=== PATIENT | female | born 1985 | race Caucasian/White ===

== ENCOUNTER 2018-07-28 06:27 | Inpatient (IN) | payer BC ==
--- NOTE | 2018-07-28 08:28 | PCM.LDHP ---
<Sayda Lebron - Last Filed: 07/28/18 08:20> L&D History of Present Illness - General Date of Service: 07/28/18 Admit Problem/Dx: Admission Diagnosis/Problem Admission Diagnosis/Problem Source of Information: Patient History Limitations: Reports: No Limitations - History of Present Illness Introduction:: 32 y/o who presents for induction of labor. Hx of gestational diabetes with 2nd , but passed 3-hour glucose in this . Feeling well today. [place] contractions. No vaginal bleeding or loss of fluid. labs: ABO/Rh B+ Yamileth Neg Rubella Immune GBS + - Related Data Allergies/Adverse Reactions: Allergies Allergy/AdvReac Type Severity Reaction Status Date / Time No Known Allergies Allergy Verified 07/28/18 06:54 Home Medications: Home Meds Pnv No.95/Ferrous Fum/Folic AC [ Caplet] 1 each PO DAILY 07/28/18 [ History] Past Medical History : 3 Para: 2 LMP (Approximate): Other OB/BYN History: 1 (07/26/12): of baby boy. 2 (): of baby girl augmented with Pitocin Endocrine/Metabolic History: Reports: Diabetes, Gestational (Gestational diabetes with second .) - Past Surgical History Head Surgeries/Procedures: Reports: None Social & Family History - Family History Cardiac: Reports: None Other OBGYN Family History: No family hx of defects, anesthesia problems, cystic fibrosis, or developmental delay. Endocrine/Metabolic: Reports: Diabetes, type II - Tobacco Use Smoking Status *Q: Former Smoker Tobacco Use Within Last Twelve Months: No - Tobacco Core Measures Tobacco Use/Smoking Within Last 30 Days: No - Alcohol Use Alcohol Use History: Yes Alcohol Use Frequency: Not Used in Over 6 Months Alcohol Use Comment: No alcohol use during . - Recreational Drug Use Recreational Drug Use: No - Sexual History Sexual History: Reports: Single Partner H&P Review of Systems - Review of Systems: Review Of Systems: See Below General: Denies: Fever, Chills HEENT: Denies: Eye Pain, Headaches, Visual Changes Pulmonary: Denies: Shortness of Breath, Wheezing, Cough Cardiovascular: Denies: Chest Pain, Blood Pressure Problem Gastrointestinal: Denies: Abdominal Pain, Diarrhea, Nausea Genitourinary: Denies: Dysuria, Frequency, Burning, Pain Skin: Denies: Cyanosis Psychiatric: Denies: Confusion, Mood Lability Hematologic/Lymphatic: Denies: Easy Bleeding, Easy Bruising L&D Exam - Exam Exam: See Below - Vital Signs Vital Signs: Last Vital Signs Temp Pulse 83 07/28/18 06:40 Resp 16 07/28/18 06:40 BP 106/60 07/28/18 06:40 Pulse Ox Weight: 98.43 kg - OB Specific Contraction Duration (sec): 40-80 Contraction Frequency (min): irregular Contraction Intensity: Mild to Moderate Movement: Active Heart Tones: Present Heart Tones per Min: 150 Heart Rate (FHR) Variability: Moderate (6-25 bmp) Presentation: Vertex - Jean Score Jean Score Cervix Position: Midposition Jean Score Consistency: Medium Jean Score Effacement: 31-50% Jean Score Dilation: 1-2 cm Jean Score Infant's Station: -3 Jean Score Total: 4 - Exam General: Alert, Oriented, Cooperative HEENT: Conjunctiva Clear, Mucosa Moist & [place], Normal Nasal Septum, Pupils Equal , Pupils Reactive Neck: Supple, Trachea Midline Lungs: Clear to Auscultation, Normal Respiratory Effort Cardiovascular: Regular Rate, Regular Rhythm, Systolic Murmur (I/IV systolic murmur consistent with a flow murmur). No: Rubs GI/Abdominal Exam: Normal Bowel Sounds, Soft, Non-Tender, No Distention Extremities: Normal Inspection, Non-Tender, No Pedal Edema Skin: Warm, Dry Psychiatric: Alert, Normal Affect, Normal Mood - Patient Data Lab Results Last 24 hrs: Laboratory Results - last 24 hr 07/28/18 07/28/18 Range/Units 06:46 06:46 WBC 10.4 H (5.0-10.0) 10^3/uL RBC 3.91 L (4.2-5.4) 10^6/uL Hgb 11.6 L (12.0-16.0) g/dL Hct 34.6 L (37.0-47.0) % MCV 88.5 (80-100) fL MCH 29.7 (27.0-34.0) pg MCHC 33.5 (33.0-35.0) g/dL Plt Count 230 (150-450) 10^3/uL Glucose 172 H (74-105) mg/dL Result Diagrams: 07/28/18 06:46 - Problem List (1) Encounter for induction of labor SNOMED Code(s): 002177096 ICD Code: Z34.90 - ENCNTR FOR SUPRVSN OF NORMAL , UNSP, UNSP TRIMESTER Status: Acute Current Visit: Yes (2) Gestational diabetes SNOMED Code(s): 07386369 ICD Code: O24.419 - GESTATIONAL DIABETES MELLITUS IN , UNSP CONTROL Status: Acute Current Visit: Yes (3) Group B streptococcal infection during SNOMED Code(s): 054089129 ICD Code: O98.819 - OTH MATERNAL INFEC/PARASTC DISEASES COMP PREG, UNSP TRI; B95.1 - STREPTOCOCCUS, GROUP B, CAUSING DISEASES CLASSD ELSWHR Status: Acute Current Visit: Yes Problem List Initiated/Reviewed/Updated: Yes Orders Last 24hrs: Active Orders 24 hr Category Date Time Status Regular Diet [DIET] Diet 07/28/18 Breakfast Active Assessment/Plan Comment:: Assessment: 1. at 39w0d gestation 2. Gestational diabetes, diet controlled 3. Glucose intolerance 4. B+/Rubella Immune/GBS+ Plan: 1. Routine management of labor 2. Induction with pitocin 3. Glucose checks q4H 4. Pencillin started at 0840 for GBS+ status <Shelby Peacock D - Last Filed: 07/28/18 12:25> L&D History of Present Illness - General Admit Problem/Dx: Patient Status Order with Admit Dx/Problem 07/28/18 08:35 Patient Status [ADT] Routine Admission Diagnosis/Problem Admission Diagnosis/Problem Gestational diabetes mellitus L&D Exam - Vital Signs Vital Signs: Last Vital Signs Temp Pulse 83 07/28/18 06:40 Resp 16 07/28/18 06:40 BP 106/60 07/28/18 06:40 Pulse Ox - Patient Data Lab Results Last 24 hrs: Laboratory Results - last 24 hr 07/28/18 07/28/18 Range/Units 06:46 06:46 WBC 10.4 H (5.0-10.0) 10^3/uL RBC 3.91 L (4.2-5.4) 10^6/uL Hgb 11.6 L (12.0-16.0) g/dL Hct 34.6 L (37.0-47.0) % MCV 88.5 (80-100) fL MCH 29.7 (27.0-34.0) pg MCHC 33.5 (33.0-35.0) g/dL Plt Count 230 (150-450) 10^3/uL Glucose 172 H (74-105) mg/dL Result Diagrams: 07/28/18 06:46 Orders Last 24hrs: Active Orders 24 hr Category Date Time Status Patient Status [ADT] Routine ADT 07/28/18 08:35 Active Communication Order [RC] ASDIRECTED Care 07/28/18 08:35 Active Communication Order [RC] ASDIRECTED Care 07/28/18 08:35 Active Communication Order [RC] ASDIRECTED Care 07/28/18 08:35 Active Communication Order [RC] ASDIRECTED Care 07/28/18 08:35 Active Communication Order [RC] ASDIRECTED Care 07/28/18 08:35 Active Heart Tones [RC] PER UNIT ROUTINE Care 07/28/18 08:35 Active Monitoring [RC] PER UNIT ROUTINE Care 07/28/18 08:35 Active Notify Provider Vital Signs OB [RC] ASDIRECTED Care 07/28/18 08:35 Active Notify Provider [RC] PRN Care 07/28/18 08:35 Active Notify Provider [RC] PRN Care 07/28/18 08:35 Active Notify Provider [RC] PRN Care 07/28/18 08:35 Active Notify Provider [RC] STAT Care 07/28/18 08:35 Active Peripheral IV Care [RC] 08,20 Care 07/28/18 08:36 Active Pump Management, Intrathecal [RC] ASDIRECTED Care 07/28/18 08:36 Active Up ad Ca [RC] ASDIRECTED Care 07/28/18 08:35 Active Up ad Ca [RC] PER UNIT ROUTINE Care 07/28/18 08:35 Active Vaginal Exam [RC] PRN Care 07/28/18 08:35 Active Vital Signs [RC] PER UNIT ROUTINE Care 07/28/18 08:35 Active Nothing Per Oral Diet [DIET] Diet 07/28/18 Lunch Active Regular Diet [DIET] Diet 07/28/18 Breakfast Active Acetaminophen [Tylenol] Med 07/28/18 08:35 Active 650 mg PO Q4H PRN Carboprost Tromethamine [Hemabate DS] Med 07/28/18 08:35 Active 250 mcg IM ASDIRECTED PRN Lactated Ringers [Ringers, Lactated] 1,000 ml Med 07/28/18 08:45 Active IV ASDIRECTED Lactated Ringers [Ringers, Lactated] 500 ml Med 07/28/18 08:35 Active IV .BOLUS Lidocaine 1% [Xylocaine-MPF 1%] Med 07/28/18 08:35 Active 30 ml INJECT ASDIRECTED PRN Methylergonovine [Methergine] Med 07/28/18 08:35 Active 0.2 mg IM ASDIRECTED PRN Ondansetron [Zofran] Med 07/28/18 08:35 Active 4 mg IV Q4H PRN Oxytocin/Normal Saline [Pitocin in NS 30 UNIT/500 ML] Med 07/28/18 08:45 Active 30 unit in 500 ml IV TITRATE Oxytocin/Normal Saline [Pitocin in NS 30 UNIT/500 ML] Med 07/28/18 08:45 Active 30 unit in 500 ml IV TITRATE Penicillin G Potassium [Pfizerpen] 3 millunits Med 07/28/18 14:00 Active Sodium Chloride 0.9% [Normal Saline] 100 ml IV Q4HR Sodium Chloride 0.9% [Saline Flush] Med 07/28/18 08:35 Active 10 ml FLUSH ASDIRECTED PRN Tranexamic Acid [Cyklokapron] 1,000 mg Med 07/28/18 08:35 Active Sodium Chloride 0.9% [Normal Saline] 100 ml IV ONETIME miSOPROStol [Cytotec] Med 07/28/18 08:35 Active 800 mcg RECTAL ASDIRECTED PRN Peripheral IV Insertion Adult [OM.PC] Urgent Oth 07/28/18 08:35 Ordered Saline Lock Insert [OM.PC] Routine Oth 07/28/18 08:35 Ordered Resuscitation Status Routine Resus Stat 07/28/18 08:35 Ordered Medication Orders Acetaminophen (Tylenol) 650 mg PO Q4H PRN PRN Reason: Pain (Mild 1-3) and fever Carboprost Tromethamine (Hemabate Ds) 250 mcg IM ASDIRECTED PRN PRN Reason: HEMORRHAGE Lactated Ringer's (Ringers, Lactated) 500 mls @ 99 mls/hr IV .BOLUS ONE Stop: 07/28/18 13:38 Tranexamic Acid 1,000 mg/ (Sodium Chloride) 110 mls @ 660 mls/hr IV ONETIME PRN PRN Reason: Bleeding Lactated Ringer's (Ringers, Lactated) 1,000 mls @ 125 mls/hr IV ASDIRECTED SHEA Last Admin: 07/28/18 09:00 Dose: 125 mls/hr Oxytocin/Sodium Chloride (Pitocin In Ns 30 Unit/500 Ml) 30 unit in 500 mls @ 2 mls/hr IV TITRATE SHEA; Protocol Last Titration: 07/28/18 11:30 Dose: 5 mls/hr Titration: 07/28/18 11:00 Dose: 4 mls/hr Titration: 07/28/18 10:30 Dose: 3 mls/hr Titration: 07/28/18 09:30 Dose: 2 mls/hr Admin: 07/28/18 09:00 Dose: 2 munits/min, 1 mls/hr Oxytocin/Sodium Chloride (Pitocin In Ns 30 Unit/500 Ml) 30 unit in 500 mls @ 1 mls/hr IV TITRATE SHEA; Protocol Penicillin G Potassium 3 (millunits/ Sodium Chloride) 100 mls @ 200 mls/hr IV Q4HR SHEA Lidocaine HCl (Xylocaine-Mpf 1%) 30 ml INJECT ASDIRECTED PRN PRN Reason: Perineal Repair Methylergonovine Maleate (Methergine) 0.2 mg IM ASDIRECTED PRN PRN Reason: Hemorrhage Misoprostol (Cytotec) 800 mcg RECTAL ASDIRECTED PRN PRN Reason: Hemorrhage Ondansetron HCl (Zofran) 4 mg IV Q4H PRN PRN Reason: Nausea/Vomiting Sodium Chloride (Saline Flush) 10 ml FLUSH ASDIRECTED PRN PRN Reason: Keep Vein Open Assessment/Plan Comment:: Patient was personally seen and examined with the medical student. I reviewed the noted scribed on my behalf and necessary changes have been made to reflect my opinion on the history, exam, assessment, and plan. - Shelby Peacock MD
[2018-07-28] MEDS ORDERED: Ondansetron 4 MG/2 ML SDV IV PRN (08:35)
[2018-07-28] MEDS ORDERED: Carboprost Tromethamine 250 MCG/1 ML Amp IM PRN (08:35)
[2018-07-28] MEDS ORDERED: Lactated Ringers 500 ML IV ONE (08:35)
[2018-07-28] MEDS ORDERED: Tranexamic Acid 1,000 MG in Sodium Chloride 0.9% 100 ML IV PRN (08:35)
[2018-07-28] MEDS ORDERED: Penicillin G Potassium 5 MILLUNITS in Sodium Chloride 0.9% 100 ML IV ONE ×2 (08:35→10:30)
[2018-07-28] MEDS ORDERED: Sodium Chloride 0.9% 10 ML Syringe FLUSH PRN (08:35)
[2018-07-28] MEDS ORDERED: Lidocaine 1% 30 ML SDV INJECT PRN (08:35)
[2018-07-28] MEDS ORDERED: Methylergonovine 0.2 MG/1 ML Amp IM PRN (08:35)
[2018-07-28] MEDS ORDERED: Acetaminophen 325 MG Tab PO PRN ×2 (08:35)
[2018-07-28] MEDS ORDERED: Misoprostol 400 MCG (4 X 100 MCG TAB) RECTAL PRN (08:35)
[2018-07-28] MEDS ORDERED: Oxytocin/Normal Saline 30 UNIT/500 ML BAG IV SCH ×2 (08:45)
[2018-07-28] MEDS: Lactated Ringers 1,000 ML IV SCH ×2 (09:00→16:03)
[2018-07-28] MEDS ORDERED: Penicillin G Potassium 3 MILLUNITS in Sodium Chloride 0.9% 100 ML IV SCH (10:00)
[2018-07-28] MEDS: Penicillin G Potassium 3 MILLUNITS in Sodium Chloride 0.9% 100 ML IV SCH ×2 (14:46→18:40)
[2018-07-28] MEDS ORDERED: Zolpidem 5 MG Tab PO PRN (21:37)
[2018-07-28] MEDS ORDERED: Misoprostol 50 MCG (1/2 of 100 MCG) Tab VAG PRN (22:00)
[2018-07-28] MEDS ORDERED: hydrOXYzine HCl 25 MG Tab PO STA (22:03)
[2018-07-28] MEDS: Misoprostol 25 MCG (1/4 of 100 MCG) Tab VAG PRN (22:18)
[2018-07-29] MEDS: Misoprostol 25 MCG (1/4 of 100 MCG) Tab VAG PRN ×2 (02:25→06:21)
[2018-07-29] MEDS: Lactated Ringers 1,000 ML IV SCH ×4 (03:00→17:10)
[2018-07-29] MEDS ORDERED: Lactated Ringers 1,000 ML IV ONE (08:37)
--- NOTE | 2018-07-29 09:31 | PCM.PNLD ---
Labor Progress Note - VS & Meds Vital Signs: Last Vital Signs Temp 98.4 F 07/29/18 07:30 Pulse 73 07/29/18 07:30 Resp 16 07/29/18 07:30 BP 112/61 07/29/18 07:30 Pulse Ox - Uterine Contractions Uterine Monitoring Mode: External [place] Contraction Frequency (min): 1-2.5 Contraction Duration (sec): 60-90 Contraction Intensity: Mild Uterine Resting Tone: Soft - Monitoring Heart Rate (FHR) Baseline: 135 Heart Rate (FHR) Variability: Moderate (6-25 bmp) Accelerations: Present, 15x15 Decelerations: None Strip Review: Category I - Vaginal Exam Dilation (cm): 3 Effacement (Percent): 75 Station: -2 Cervical Position: Midposition Sterile Vaginal Exam Performed By: Shelby Peacock Vaginal Exam Comment: cervix more anterior; very soft
[2018-07-29] MEDS: Penicillin G Potassium 3 MILLUNITS in Sodium Chloride 0.9% 100 ML IV PRN ×2 (11:31→15:19)
[2018-07-29] MEDS ORDERED: fentaNYL 100 MCG/2 ML SDV ONE (15:26)
[2018-07-29] MEDS ORDERED: EPINEPHrine 1 MG/ML SDV ONE (15:27)
--- NOTE | 2018-07-29 16:15 | PCM.PRNOTE ---
- Free Text/Narrative Note: Requested to provide analgesia to full term patient in severe pain. Upon entering the room, patient is sitting on edge of bed complaining of severe abdominal/pelvic pain and discomfort. Procedure was discussed with patient including adverse outcomes and expectations. Pt consented to analgesia, SAB/ IT. Pt placed into a proper sitting position. Landmarks for SAB/IT were identified and marked. Hands were washed and appropriate PPE was applied. Back was prepped with betadine x3. A sterile, transparent, fenestrated drape was applied. Excess betadine was removed. Using 3 mL of a 1% lidocaine solution , a skin wheel was placed at the L2/L3 interspace. A 24 ga (4 inch) Pencan spinal needle was inserted until positive for CSF. Negative for heme or paresthesias. Injected fentanyl 30 mcg, sufentanil 25 mcg, and 7.5 mg of a 0.75 % bupivacaine solution with an epi wash. Pt was placed left lateral position for approximately 10 minutes. Pt began to have a decrease in FHT. HR was 88- 120, hovering in the 90s for several minutes. O2 applied and fluid bolus given. BP normal, 105-108 systolic. Nurse checked the patient and she was complete with head far down >+2. Md to room. Baby girl delivered without difficulties. Will continue to monitor. Procedure Date & Time: 07/29/18 [phone]
[2018-07-29] MEDS ORDERED: ePHEDrine 50 MG/ML SDV IVPUSH ONE (17:02)
[2018-07-29] MEDS: ePHEDrine 50 MG/ML SDV ONE ×2 (17:07→17:43)
[2018-07-29] MEDS: ePHEDrine 50 MG/ML SDV IVPUSH PRN ×5 (17:07→17:31)
--- NOTE | 2018-07-29 17:12 | PCM.DEL ---
<Sayad Lebron - Last Filed: 07/29/18 17:32> L & D Note - General Info Date of Service: 07/29/18 - Delivery Note Labor: Induced by Oxytocin Delivery Outcome: Livebirth Infant Delivery Method: Spontaneous Vaginal Delivery-Single Presentation: Vertex Nuchal Cord: Reduced Anesthesia Type: Intrathecal Laceration: None Placenta: Intact, Spontaneous Cord: 3 Vessels Resuscitation Needed: No : Suctioned, Bulb Syringe, Stimulated, Warmed Score 1 min: 6 Score 5 min: 9 Second Stage Interventions: Reports: Pushing Effectively Induction Criteria - Jean Score Jean Score Dilation: 1-2 cm Jean Score Effacement: 40-50% Jean Score 's Station: -3 Jean Score Consistency: Firm Jean Score Cervix Position: Posterior Jean Score Total: 2 Jean Score Presenting Part: Reports: Cephalic - Induction Gestational Age >/= 39 wks: Yes Estimated Pelvis: Reports: Adequate Reassuring Monitoring Strip: Yes - General Info Date of Service: 07/29/18 Admission Dx/Problem (Free Text): Induction of Labor Subjective Update: 30 39w0d TAMIKO presented at on 07/28 for elective induction of labor. Patient had irregular contractions occurring every 3-9 minutes and a cervical check of 1/50/-3. Pitocin was started and increased in the usual fashion. Patient made limited progress by the end of the day. The Pitocin was stopped and Cytotec was placed overnight. Pitocin was restarted the morning of 07/29/18 and increased in the usual fashion. At 1530, the patient requested intrathecal anesthesia and was found to be 5/80/0 with spontaneous rupture of membranes. Shortly after the intrathecal anesthesia placement, the patient had a desire to push and was found to be completely dilated. The patient pushed extremely well, the rotated and descended and normal spontaneous vaginal delivery occurred at 1558 hours in the YELENA position over intact perineum. Meconium- stained fluid was noted as the head came over the perineum. The shoulders delivered easily and nuchal cord loose x1 was noted and reduced with the delivery of the body. The cord was immediately clamped x2 and cut. The infant was taken to the warmer for evaluation. The placenta delivered spontaneously, was complete, and had a 3-vessel cord. EBL 200mL. Pitocin was run open after the delivery of the placenta. The vagina was inspected with note of a superficial vaginal abrasion on the inferior aspect of the perineum. The fundus was firm. Infant's Apgars were 6/9. Weight was 7 lbs 13 oz (3540g). Shortly after delivery, BP was noted to be 60's/40's. Patient was given epinephrine per order of WOOD COATER and a CBC was ordered to evaluate for blood loss. - Review of Systems General: Denies: Fever, Weakness HEENT: Denies: Headaches, Visual Changes Pulmonary: Denies: Shortness of Breath, Cough, Wheezing Cardiovascular: Denies: Chest Pain, Palpitations Neurological: Denies: Confusion, Dizziness, Headache - Patient Data Vitals - Most Recent: Last Vital Signs Temp 98.4 F 07/29/18 13:45 Pulse 72 07/29/18 14:00 Resp 14 07/29/18 14:00 BP 113/68 07/29/18 14:00 Pulse Ox Weight - Most Recent: 98.43 kg Lab Results Last 24 Hours: Laboratory Results - last 24 hr 07/28/18 07/28/18 Range/Units 17:26 20:03 POC Glucose 83 84 (70-105) mg/dl Med Orders - Current: Current Medications Acetaminophen (Tylenol) 650 mg PO Q4H PRN PRN Reason: Pain (Mild 1-3) and fever Carboprost Tromethamine (Hemabate Ds) 250 mcg IM ASDIRECTED PRN PRN Reason: HEMORRHAGE Tranexamic Acid 1,000 mg/ (Sodium Chloride) 110 mls @ 660 mls/hr IV ONETIME PRN PRN Reason: Bleeding Lactated Ringer's (Ringers, Lactated) 1,000 mls @ 125 mls/hr IV ASDIRECTED SHEA Last Admin: 07/29/18 09:00 Dose: 125 mls/hr Oxytocin/Sodium Chloride (Pitocin In Ns 30 Unit/500 Ml) 30 unit in 500 mls @ 2 mls/hr IV TITRATE SHEA; Protocol Last Titration: 07/28/18 20:13 Dose: 0 mls/hr Oxytocin/Sodium Chloride (Pitocin In Ns 30 Unit/500 Ml) 30 unit in 500 mls @ 1 mls/hr IV TITRATE SHEA; Protocol Last Titration: 07/29/18 14:40 Dose: 9 munits/min, 9 mls/hr Penicillin G Potassium 3 (millunits/ Sodium Chloride) 100 mls @ 200 mls/hr IV Q4H PRN PRN Reason: start when pt in active labor Last Admin: 07/29/18 15:19 Dose: 200 mls/hr Lidocaine HCl (Xylocaine-Mpf 1%) 30 ml INJECT ASDIRECTED PRN PRN Reason: Perineal Repair Methylergonovine Maleate (Methergine) 0.2 mg IM ASDIRECTED PRN PRN Reason: Hemorrhage Misoprostol (Cytotec) 800 mcg RECTAL ASDIRECTED PRN PRN Reason: Hemorrhage Misoprostol (Cytotec) 25 mcg VAG Q4H PRN PRN Reason: Other Last Admin: 07/29/18 06:21 Dose: 25 mcg Ondansetron HCl (Zofran) 4 mg IV Q4H PRN PRN Reason: Nausea/Vomiting Last Admin: 07/29/18 15:12 Dose: 4 mg Sodium Chloride (Saline Flush) 10 ml FLUSH ASDIRECTED PRN PRN Reason: Keep Vein Open Zolpidem Tartrate (Ambien) 5 mg PO BEDTIME PRN PRN Reason: Insomnia Discontinued Medications Epinephrine HCl (Adrenalin) Confirm Administered Dose 1 mg .ROUTE .STK-MED ONE Stop: 07/29/18 15:28 Last Admin: 07/29/18 16:46 Dose: Not Given Fentanyl (Sublimaze) Confirm Administered Dose 100 mcg .ROUTE .STK-MED ONE Stop: 07/29/18 15:27 Last Admin: 07/29/18 16:46 Dose: Not Given Hydroxyzine HCl (Atarax) 50 mg PO ONETIME STA Stop: 07/28/18 22:04 Last Admin: 07/28/18 22:18 Dose: 50 mg Lactated Ringer's (Ringers, Lactated) 500 mls @ 99 mls/hr IV .BOLUS ONE Stop: 07/28/18 13:38 Last Admin: 07/29/18 09:51 Dose: Not Given Penicillin G Potassium 5 (millunits/ Sodium Chloride) 100 mls @ 200 mls/hr IV ONETIME ONE Stop: 07/28/18 10:59 Last Admin: 07/28/18 10:42 Dose: 200 mls/hr Penicillin G Potassium 3 (millunits/ Sodium Chloride) 100 mls @ 200 mls/hr IV Q4HR SHEA Last Admin: 07/28/18 18:40 Dose: 200 mls/hr Lactated Ringer's (Ringers, Lactated) 1,000 mls @ 999 mls/hr IV .BOLUS ONE Stop: 07/29/18 09:37 Last Admin: 07/29/18 15:07 Dose: 999 mls/hr Misoprostol (Cytotec) 25 mcg VAG Q4H PRN PRN Reason: Other Sufentanil Citrate (Sufenta) Confirm Administered Dose 50 mcg .ROUTE .STK-MED ONE Stop: 07/29/18 15:28 Last Admin: 07/29/18 16:46 Dose: Not Given - Exam General: Alert, Oriented HEENT: EOMI, Mucous Membr. Moist/[place] Neck: Supple Lungs: Clear to Auscultation, Normal Respiratory Effort Cardiovascular: Regular Rate, Regular Rhythm GI/Abdominal Exam: Soft, Non-Tender Extremities: Normal Inspection, No Pedal Edema, Normal Capillary Refill Skin: Warm, Dry Psy/Mental Status: Alert, Normal Affect, Normal Mood - Problem List & Annotations (1) Encounter for induction of labor SNOMED Code(s): 211969313 Code(s): Z34.90 - ENCNTR FOR SUPRVSN OF NORMAL , UNSP, UNSP TRIMESTER Status: Acute Current Visit: Yes (2) Gestational diabetes SNOMED Code(s): 65439739 Code(s): O24.419 - GESTATIONAL DIABETES MELLITUS IN , UNSP CONTROL Status: Acute Current Visit: Yes (3) Group B streptococcal infection during SNOMED Code(s): 615064275 Code(s): O98.819 - OTH MATERNAL INFEC/PARASTC DISEASES COMP PREG, UNSP TRI; B95.1 - STREPTOCOCCUS, GROUP B, CAUSING DISEASES CLASSD ELSWHR Status: Acute Current Visit: Yes - Problem List Review Problem List Initiated/Reviewed/Updated: Yes - Plan Plan:: 1. Routine care. 2. Bottle feeding 3. Encourage ambulation once intrathecal wears off. 4. WOOD COATER managing low BP 5. Anticipate discharge tomorrow or Tuesday <Shelby Peacock - Last Filed: 07/29/18 17:46> - Patient Data Vitals - Most Recent: Last Vital Signs Temp 98.4 F 07/29/18 13:45 Pulse 72 07/29/18 14:00 Resp 14 07/29/18 14:00 BP 113/68 07/29/18 14:00 Pulse Ox Lab Results Last 24 Hours: Laboratory Results - last 24 hr 07/28/18 Range/Units 20:03 POC Glucose 84 (70-105) mg/dl - My Orders Last 24 Hours: My Active Orders 07/29/18 17:37 Notify Provider Vital Signs OB [RC] ASDIRECTED Up ad Ca [RC] ASDIRECTED Vital Signs [RC] PFP CBC W/O DIFF,HEMOGRAM [HEME] Routine Acetaminophen [Tylenol] 650 mg PO Q6H PRN Benzocaine/Menthol [Dermoplast Pain Relief [place]] See Dose Instructions TOP Q4H PRN Carboprost Tromethamine [Hemabate DS] 250 mcg IM ASDIRECTED PRN Docusate Sodium [Colace] 100 mg PO BID PRN Ibuprofen [Motrin] 800 mg PO Q8H PRN Oxytocin [Pitocin] 10 unit IM ONETIME PRN Simethicone 80 mg PO Q4H PRN Sodium Chloride 0.9% [Saline Flush] 10 ml FLUSH ASDIRECTED PRN Tranexamic Acid [Cyklokapron] 1,000 mg Sodium Chloride 0.9% [Normal Saline] 100 ml IV ONETIME Zolpidem [Ambien] 5 mg PO BEDTIME PRN miSOPROStol [Cytotec] 800 mcg RECTAL ONETIME PRN Assess Lochia [WOMSER] Per Unit Routine Assess Uterine Involution [WOMSER] Per Unit Routine Breast Pump [WOMSER] Per Unit Routine Ice Therapy [OM.PC] Per Unit Routine Perineal Care [OM.PC] Per Unit Routine Saline Lock Insert [OM.PC] Urgent Sitz Bath [OM.PC] Per Unit Routine 07/30/18 09:00 Vit with Ca/FA/Iron [ Plus Iron] 1 each PO DAILY - Plan Plan:: Patient was personally seen and examined with the medical student. Delivery was performed by myself with the assist of KARYN Bueno. I reviewed the noted scribed on my behalf and necessary changes have been made to reflect my opinion on the history, exam, assessment, and plan. - Shelby Peacock MD
[2018-07-29] MEDS ORDERED: Acetaminophen 325 MG Tab PO PRN (17:37)
[2018-07-29] MEDS ORDERED: Misoprostol 400 MCG (4 X 100 MCG TAB) RECTAL PRN (17:37)
[2018-07-29] MEDS ORDERED: Oxytocin 10 Units/1 ML SDV IM PRN (17:37)
[2018-07-29] MEDS ORDERED: Tranexamic Acid 1,000 MG in Sodium Chloride 0.9% 100 ML IV PRN (17:37)
[2018-07-29] MEDS ORDERED: Carboprost Tromethamine 250 MCG/1 ML Amp IM PRN (17:37)
[2018-07-29] MEDS ORDERED: Zolpidem 5 MG Tab PO PRN (17:37)
[2018-07-29] MEDS ORDERED: Benzocaine/Menthol 20%-0.5% Spray 56 GM Canister TOP PRN (17:37)
[2018-07-29] MEDS ORDERED: Simethicone 80 MG Tab.Chew PO PRN (17:37)
[2018-07-29] MEDS ORDERED: Sodium Chloride 0.9% 10 ML Syringe FLUSH PRN (17:37)
[2018-07-30] MEDS: Docusate Sodium 100 MG Cap PO PRN ×2 (00:12→10:30)
[2018-07-30] MEDS: Ibuprofen 800 MG Tab PO PRN ×2 (00:12→10:30)
[2018-07-30] MEDS ORDERED: Prenatal Multivitamin with Calcium/Folic Acid/Iron Tab PO SCH (09:00)
--- NOTE | 2018-07-30 09:56 | PCM.DCSUM1 ---
<Sayda Lebron - Last Filed: 07/30/18 10:04> Discharge Summary - Hospital Course Free Text/Narrative:: 32 yo at 39w0d gestation based on U/S on 01/10/18 at 10w4d gestation who presented to L&D on 07/28 for induction of labor. complicated by gestational diabetes - diet controlled. labs include B+, Rubella Immune , GBS+. When she presented, she was 1/50/-3. Pitocin was started and increased in the usual fashion. Despite pitocin augmentation, the patient had limited progress. The evening of 07/28, the Pitocin was stopped and cervical ripening with Cytotec x1 was done overnight. Pitocin was resumed at 1030 the morning of 07/29 with good labor progression. Around 1530 the patient received intrathecal anesthesia and was found to be 5/90/0. Shortly after placement of the intrathecal, the patient was found to be complete with the desire to push. At 1558 the patient delivered a live female via . scores of 6/9. weight of 3540g (7lb 3oz). A small 1st degree perineal laceration was noted, but not repaired. Patient initiated bottle feeding . Has been ambulating and tolerating diet well. Pain well controlled on oral medications. - Discharge Data Discharge Date: 07/30/18 Discharge Disposition: Home, Self-Care 01 Condition: Good - Discharge Diagnosis/Problem(s) (1) Encounter for induction of labor SNOMED Code(s): 446883896 ICD Code: Z34.90 - ENCNTR FOR SUPRVSN OF NORMAL , UNSP, UNSP TRIMESTER Status: Acute Current Visit: Yes (2) Gestational diabetes SNOMED Code(s): 84023275 ICD Code: O24.419 - GESTATIONAL DIABETES MELLITUS IN , UNSP CONTROL Status: Acute Current Visit: Yes Qualifiers: Gestational diabetes mellitus control: diet-controlled (3) Group B streptococcal infection during SNOMED Code(s): 467094535 ICD Code: O98.819 - OTH MATERNAL INFEC/PARASTC DISEASES COMP PREG, UNSP TRI; B95.1 - STREPTOCOCCUS, GROUP B, CAUSING DISEASES CLASSD ELSWHR Status: Acute Current Visit: Yes - Patient Summary/Data Operative Procedure(s) Performed: 1. . 2. Intrathecal anesthesia - Patient Instructions Diet: Usual Diet as Tolerated Activity: As Tolerated, No Lifting Over 20 Pounds Driving: Do Not Drive (No driving on narcotic pain medications.) Showering/Bathing: May Shower, No Tub Bathing/Swimming Notify Provider of: Fever, Increased Pain, Drainage, Nausea and/or Vomiting - Discharge Plan *PRESCRIPTION DRUG MONITORING PROGRAM REVIEWED*: Not Applicable *COPY OF PRESCRIPTION DRUG MONITORING REPORT IN PATIENT ARISTEO: Not Applicable Home Medications: Home Meds Pnv No.95/Ferrous Fum/Folic AC [ Caplet] 1 each PO DAILY 07/28/18 [ History] - Discharge Summary/Plan Comment DC Time >30 min.: No - General Info Date of Service: 07/30/18 Admission Dx/Problem (Free Text: Induction of Labor Subjective Update: PPD#1 for 32 39w0d EGA s/p with delivery of live female . Patient states she feels well. Bottle feeding . Pain is well controlled on oral medications. Has been ambulating frequently. Tolerating diet. Urinating without problem. No BM yet, but has been passing flatus. Feels well enough for discharge this afternoon. Functional Status: Reports: Pain Controlled, Tolerating Diet, Ambulating, Urinating - Review of Systems General: Denies: Fever, Weakness, Chills HEENT: Denies: Headaches, Visual Changes Pulmonary: Denies: Shortness of Breath, Cough Cardiovascular: Denies: Chest Pain, Lightheadedness Gastrointestinal: Reports: Flatus. Denies: Abdominal Pain, Vomiting Genitourinary: Denies: Dysuria, Frequency, Burning, Pain - Patient Data Vitals - Most Recent: Last Vital Signs Temp 98.4 F 07/30/18 08:00 Pulse 70 07/30/18 08:00 Resp 16 07/30/18 08:00 BP 98/58 L 07/30/18 08:00 Pulse Ox 98 07/30/18 08:00 Weight - Most Recent: 98.43 kg I&O - Last 24 hours: Intake & Output 07/29/18 07/30/18 07/30/18 22:59 06:59 14:59 Intake Total 3600 Output Total 400 700 Balance 3200 -700 Lab Results - Last 24 hrs: Laboratory Results - last 24 hr 07/29/18 Range/Units 18:20 WBC 17.7 H (5.0-10.0) 10^3/uL RBC 3.60 L (4.2-5.4) 10^6/uL Hgb 10.7 L (12.0-16.0) g/dL Hct 32.1 L (37.0-47.0) % MCV 89.2 (80-100) fL MCH 29.7 (27.0-34.0) pg MCHC 33.3 (33.0-35.0) g/dL Plt Count 202 (150-450) 10^3/uL Med Orders - Current: Current Medications Acetaminophen (Tylenol) 650 mg PO Q6H PRN PRN Reason: mild pain or fever Last Admin: 07/30/18 00:13 Dose: 650 mg Benzocaine/Menthol (Dermoplast Pain Relief [place]) 0 gm TOP Q4H PRN PRN Reason: Perineal comfort measures Carboprost Tromethamine (Hemabate Ds) 250 mcg IM ASDIRECTED PRN PRN Reason: Excessive vaginal bleeding Docusate Sodium (Colace) 100 mg PO BID PRN PRN Reason: Constipation Last Admin: 07/30/18 00:12 Dose: 100 mg Ephedrine Sulfate (Ephedrine Sulfate) 5 mg IVPUSH ASDIRECTED PRN PRN Reason: Hypotension Last Admin: 07/29/18 17:31 Dose: 5 mg Oxytocin/Sodium Chloride (Pitocin In Ns 30 Unit/500 Ml) 30 unit in 500 mls @ 2 mls/hr IV TITRATE SHEA; Protocol Last Titration: 07/28/18 20:13 Dose: 0 mls/hr Oxytocin/Sodium Chloride (Pitocin In Ns 30 Unit/500 Ml) 30 unit in 500 mls @ 1 mls/hr IV TITRATE SHEA; Protocol Last Titration: 07/29/18 18:01 Dose: 50 munits/min, 50 mls/hr Tranexamic Acid 1,000 mg/ (Sodium Chloride) 110 mls @ 660 mls/hr IV ONETIME PRN PRN Reason: Bleeding Ibuprofen (Motrin) 800 mg PO Q8H PRN PRN Reason: Mild Pain or Fever Last Admin: 07/30/18 00:12 Dose: 800 mg Misoprostol (Cytotec) 800 mcg RECTAL ONETIME PRN PRN Reason: Hemorrhage Oxytocin (Pitocin) 10 unit IM ONETIME PRN PRN Reason: Bleeding Prenat Multivit/[place]/Iron/Folic Ac ( Plus Iron) 1 each PO DAILY SHEA Simethicone (Simethicone) 80 mg PO Q4H PRN PRN Reason: Gas Last Admin: 07/30/18 00:11 Dose: 80 mg Sodium Chloride (Saline Flush) 10 ml FLUSH ASDIRECTED PRN PRN Reason: Keep Vein Open Last Admin: 07/29/18 17:05 Dose: 10 ml Zolpidem Tartrate (Ambien) 5 mg PO BEDTIME PRN PRN Reason: Insomnia Discontinued Medications Acetaminophen (Tylenol) 650 mg PO Q4H PRN PRN Reason: Pain (Mild 1-3) and fever Carboprost Tromethamine (Hemabate Ds) 250 mcg IM ASDIRECTED PRN PRN Reason: HEMORRHAGE Ephedrine Sulfate (Ephedrine Sulfate) Confirm Administered Dose 50 mg .ROUTE .STK-MED ONE Stop: 07/29/18 17:03 Last Admin: 07/29/18 17:43 Dose: Not Given Ephedrine Sulfate (Ephedrine Sulfate) 5 mg IVPUSH ONETIME ONE Stop: 07/29/18 17:03 Last Admin: 07/29/18 17:42 Dose: Not Given Epinephrine HCl (Adrenalin) Confirm Administered Dose 1 mg .ROUTE .STK-MED ONE Stop: 07/29/18 15:28 Last Admin: 07/29/18 16:46 Dose: Not Given Fentanyl (Sublimaze) Confirm Administered Dose 100 mcg .ROUTE .STK-MED ONE Stop: 07/29/18 15:27 Last Admin: 07/29/18 16:46 Dose: Not Given Hydroxyzine HCl (Atarax) 50 mg PO ONETIME STA Stop: 07/28/18 22:04 Last Admin: 07/28/18 22:18 Dose: 50 mg Lactated Ringer's (Ringers, Lactated) 500 mls @ 99 mls/hr IV .BOLUS ONE Stop: 07/28/18 13:38 Last Admin: 07/29/18 09:51 Dose: Not Given Tranexamic Acid 1,000 mg/ (Sodium Chloride) 110 mls @ 660 mls/hr IV ONETIME PRN PRN Reason: Bleeding Lactated Ringer's (Ringers, Lactated) 1,000 mls @ 125 mls/hr IV ASDIRECTED SHEA Last Admin: 07/29/18 17:10 Dose: 125 mls/hr Penicillin G Potassium 5 (millunits/ Sodium Chloride) 100 mls @ 200 mls/hr IV ONETIME ONE Stop: 07/28/18 10:59 Last Admin: 07/28/18 10:42 Dose: 200 mls/hr Penicillin G Potassium 3 (millunits/ Sodium Chloride) 100 mls @ 200 mls/hr IV Q4HR [facility] Last Admin: 07/28/18 18:40 Dose: 200 mls/hr Penicillin G Potassium 3 (millunits/ Sodium Chloride) 100 mls @ 200 mls/hr IV Q4H PRN PRN Reason: start when pt in active labor Last Admin: 07/29/18 15:19 Dose: 200 mls/hr Lactated Ringer's (Ringers, Lactated) 1,000 mls @ 999 mls/hr IV .BOLUS ONE Stop: 07/29/18 09:37 Last Admin: 07/29/18 15:07 Dose: 999 mls/hr Lidocaine HCl (Xylocaine-Mpf 1%) 30 ml INJECT ASDIRECTED PRN PRN Reason: Perineal Repair Methylergonovine Maleate (Methergine) 0.2 mg IM ASDIRECTED PRN PRN Reason: Hemorrhage Misoprostol (Cytotec) 800 mcg RECTAL ASDIRECTED PRN PRN Reason: Hemorrhage Misoprostol (Cytotec) 25 mcg VAG Q4H PRN PRN Reason: Other Misoprostol (Cytotec) 25 mcg VAG Q4H PRN PRN Reason: Other Last Admin: 07/29/18 06:21 Dose: 25 mcg Ondansetron HCl (Zofran) 4 mg IV Q4H PRN PRN Reason: Nausea/Vomiting Last Admin: 07/29/18 15:12 Dose: 4 mg Sodium Chloride (Saline Flush) 10 ml FLUSH ASDIRECTED PRN PRN Reason: Keep Vein Open Sufentanil Citrate (Sufenta) Confirm Administered Dose 50 mcg .ROUTE .STK-MED ONE Stop: 07/29/18 15:28 Last Admin: 07/29/18 16:46 Dose: Not Given Zolpidem Tartrate (Ambien) 5 mg PO BEDTIME PRN PRN Reason: Insomnia - Exam General: Reports: Alert, Oriented, Cooperative, No Acute Distress HEENT: Reports: EOMI, Mucous Membr. Moist/[place] Neck: Reports: Supple Lungs: Reports: Clear to Auscultation, Normal Respiratory Effort Cardiovascular: Reports: Regular Rate, Regular Rhythm, No Murmurs GI/Abdominal Exam: Normal Bowel Sounds, Soft, Non-Tender Extremities: Normal Inspection, Non-Tender, No Pedal Edema. No: Sari's Sign Skin: Reports: Warm, Dry, Intact Psy/Mental Status: Reports: Alert, Normal Affect, Normal Mood <Shelby Peacock - Last Filed: 07/30/18 11:07> Discharge Summary - Discharge Summary/Plan Comment Discharge Summary/Plan Comment: Patient was personally seen and examined with the medical student. I reviewed the noted scribed on my behalf and necessary changes have been made to reflect my opinion on the history, exam, assessment, and plan. - Shelby Peacock MD - Patient Data Vitals - Most Recent: Last Vital Signs Temp 98.4 F 07/30/18 08:00 Pulse 70 07/30/18 08:00 Resp 16 07/30/18 08:00 BP 98/58 L 07/30/18 08:00 Pulse Ox 98 07/30/18 08:00 I&O - Last 24 hours: Intake & Output 07/29/18 07/30/18 07/30/18 22:59 06:59 14:59 Intake Total 3600 Output Total 400 700 Balance 3200 -700 Lab Results - Last 24 hrs: Laboratory Results - last 24 hr 07/29/18 Range/Units 18:20 WBC 17.7 H (5.0-10.0) 10^3/uL RBC 3.60 L (4.2-5.4) 10^6/uL Hgb 10.7 L (12.0-16.0) g/dL Hct 32.1 L (37.0-47.0) % MCV 89.2 (80-100) fL MCH 29.7 (27.0-34.0) pg MCHC 33.3 (33.0-35.0) g/dL Plt Count 202 (150-450) 10^3/uL Med Orders - Current: Current Medications Acetaminophen (Tylenol) 650 mg PO Q6H PRN PRN Reason: mild pain or fever Last Admin: 07/30/18 00:13 Dose: 650 mg Benzocaine/Menthol (Dermoplast Pain Relief [place]) 0 gm TOP Q4H PRN PRN Reason: Perineal comfort measures Carboprost Tromethamine (Hemabate Ds) 250 mcg IM ASDIRECTED PRN PRN Reason: Excessive vaginal bleeding Docusate Sodium (Colace) 100 mg PO BID PRN PRN Reason: Constipation Last Admin: 07/30/18 10:30 Dose: 100 mg Ephedrine Sulfate (Ephedrine Sulfate) 5 mg IVPUSH ASDIRECTED PRN PRN Reason: Hypotension Last Admin: 07/29/18 17:31 Dose: 5 mg Oxytocin/Sodium Chloride (Pitocin In Ns 30 Unit/500 Ml) 30 unit in 500 mls @ 2 mls/hr IV TITRATE SHEA; Protocol Last Titration: 07/28/18 20:13 Dose: 0 mls/hr Oxytocin/Sodium Chloride (Pitocin In Ns 30 Unit/500 Ml) 30 unit in 500 mls @ 1 mls/hr IV TITRATE SHEA; Protocol Last Titration: 07/29/18 18:01 Dose: 50 munits/min, 50 mls/hr Tranexamic Acid 1,000 mg/ (Sodium Chloride) 110 mls @ 660 mls/hr IV ONETIME PRN PRN Reason: Bleeding Ibuprofen (Motrin) 800 mg PO Q8H PRN PRN Reason: Mild Pain or Fever Last Admin: 07/30/18 10:30 Dose: 800 mg Misoprostol (Cytotec) 800 mcg RECTAL ONETIME PRN PRN Reason: Hemorrhage Oxytocin (Pitocin) 10 unit IM ONETIME PRN PRN Reason: Bleeding Prenat Multivit/[employer]/Iron/Folic Ac ( Plus Iron) 1 each PO DAILY SHEA Last Admin: 07/30/18 10:30 Dose: 1 each Simethicone (Simethicone) 80 mg PO Q4H PRN PRN Reason: Gas Last Admin: 07/30/18 00:11 Dose: 80 mg Sodium Chloride (Saline Flush) 10 ml FLUSH ASDIRECTED PRN PRN Reason: Keep Vein Open Last Admin: 07/29/18 17:05 Dose: 10 ml Zolpidem Tartrate (Ambien) 5 mg PO BEDTIME PRN PRN Reason: Insomnia Discontinued Medications Acetaminophen (Tylenol) 650 mg PO Q4H PRN PRN Reason: Pain (Mild 1-3) and fever Carboprost Tromethamine (Hemabate Ds) 250 mcg IM ASDIRECTED PRN PRN Reason: HEMORRHAGE Ephedrine Sulfate (Ephedrine Sulfate) Confirm Administered Dose 50 mg .ROUTE .STK-MED ONE Stop: 07/29/18 17:03 Last Admin: 07/29/18 17:43 Dose: Not Given Ephedrine Sulfate (Ephedrine Sulfate) 5 mg IVPUSH ONETIME ONE Stop: 07/29/18 17:03 Last Admin: 07/29/18 17:42 Dose: Not Given Epinephrine HCl (Adrenalin) Confirm Administered Dose 1 mg .ROUTE .STK-MED ONE Stop: 07/29/18 15:28 Last Admin: 07/29/18 16:46 Dose: Not Given Fentanyl (Sublimaze) Confirm Administered Dose 100 mcg .ROUTE .STK-MED ONE Stop: 07/29/18 15:27 Last Admin: 07/29/18 16:46 Dose: Not Given Hydroxyzine HCl (Atarax) 50 mg PO ONETIME STA Stop: 07/28/18 22:04 Last Admin: 07/28/18 22:18 Dose: 50 mg Lactated Ringer's (Ringers, Lactated) 500 mls @ 99 mls/hr IV .BOLUS ONE Stop: 07/28/18 13:38 Last Admin: 07/29/18 09:51 Dose: Not Given Tranexamic Acid 1,000 mg/ (Sodium Chloride) 110 mls @ 660 mls/hr IV ONETIME PRN PRN Reason: Bleeding Lactated Ringer's (Ringers, Lactated) 1,000 mls @ 125 mls/hr IV ASDIRECTED [facility] Last Admin: 07/29/18 17:10 Dose: 125 mls/hr Penicillin G Potassium 5 (millunits/ Sodium Chloride) 100 mls @ 200 mls/hr IV ONETIME ONE Stop: 07/28/18 10:59 Last Admin: 07/28/18 10:42 Dose: 200 mls/hr Penicillin G Potassium 3 (millunits/ Sodium Chloride) 100 mls @ 200 mls/hr IV Q4HR [facility] Last Admin: 07/28/18 18:40 Dose: 200 mls/hr Penicillin G Potassium 3 (millunits/ Sodium Chloride) 100 mls @ 200 mls/hr IV Q4H PRN PRN Reason: start when pt in active labor Last Admin: 07/29/18 15:19 Dose: 200 mls/hr Lactated Ringer's (Ringers, Lactated) 1,000 mls @ 999 mls/hr IV .BOLUS ONE Stop: 07/29/18 09:37 Last Admin: 07/29/18 15:07 Dose: 999 mls/hr Lidocaine HCl (Xylocaine-Mpf 1%) 30 ml INJECT ASDIRECTED PRN PRN Reason: Perineal Repair Methylergonovine Maleate (Methergine) 0.2 mg IM ASDIRECTED PRN PRN Reason: Hemorrhage Misoprostol (Cytotec) 800 mcg RECTAL ASDIRECTED PRN PRN Reason: Hemorrhage Misoprostol (Cytotec) 25 mcg VAG Q4H PRN PRN Reason: Other Misoprostol (Cytotec) 25 mcg VAG Q4H PRN PRN Reason: Other Last Admin: 07/29/18 06:21 Dose: 25 mcg Ondansetron HCl (Zofran) 4 mg IV Q4H PRN PRN Reason: Nausea/Vomiting Last Admin: 07/29/18 15:12 Dose: 4 mg Sodium Chloride (Saline Flush) 10 ml FLUSH ASDIRECTED PRN PRN Reason: Keep Vein Open Sufentanil Citrate (Sufenta) Confirm Administered Dose 50 mcg .ROUTE .STK-MED ONE Stop: 07/29/18 15:28 Last Admin: 07/29/18 16:46 Dose: Not Given Zolpidem Tartrate (Ambien) 5 mg PO BEDTIME PRN PRN Reason: Insomnia
[2018-07-30] MEDS ORDERED: Bupivacaine 0.75%/D5W 2 ML Amp INJECT ONE (17:09)
[2018-07-30] MEDS ORDERED: fentaNYL 100 MCG/2 ML SDV ITHECAL ONE (17:09)
[2018-07-30] MEDS ORDERED: EPINEPHrine 1 MG/ML SDV IV ONE (17:09)
[2018-07-30] MEDS ORDERED: Lidocaine 2% 20 ML MDV INJECT ONE (17:09)
== END 2018-07-30 17:10 | disposition home or self-care (01) | DRG 560 ==
LOC: DL.OBCHECK 06:27 → UNDOADMIN 06:29 → DL.OB 06:29
PROVIDERS: ADMIT Family Medicine; ATTEND Family Medicine
PROC: 10E0XZZ Delivery of Products of Conception, External Approach (ICD-10-PCS; principal; 2018-07-29)
PROC: 3E0P7VZ Introduction of Hormone into Female Reproductive, Via Natural or Artificial Opening (ICD-10-PCS; 2018-07-29)
PROC: 4A1HXCZ Monitoring of Products of Conception, Cardiac Rate, External Approach (ICD-10-PCS; 2018-07-29)
PROC: 3E0R3BZ Introduction of Anesthetic Agent into Spinal Canal, Percutaneous Approach (ICD-10-PCS; 2018-07-29)
DX: O24.420 Gestational diabetes mellitus in childbirth, diet controlled (principal); Z3A.39 39 weeks gestation of pregnancy; Z37.0 Single live birth; O70.0 First degree perineal laceration during delivery; O98.82 Other maternal infectious and parasitic diseases complicating childbirth; B95.1 Streptococcus, group B, as the cause of diseases classified elsewhere; O77.0 Labor and delivery complicated by meconium in amniotic fluid; O69.81X0 Labor and delivery complicated by cord around neck, without compression, not applicable or unspecified; Z87.891 Personal history of nicotine dependence
CPT/HCPCS: 36415; 59409; 82947; 82962; 85027; A9270-GY; J0171; J2405; J2540; J2590; J3010; J7050; J7120

== ENCOUNTER 2023-11-16 13:40 | Emergency (ER) | payer BC ==
[2023-11-16] MEDS: Sodium Chloride 0.9% 10 ML Syringe FLUSH PRN (14:12)
[2023-11-16 14:14] LABS: BASOPHILS PERCENT AUTO 0.1 % (0.0-1.0); EOSINOPHILS PERCENT AUTO 1.3 % (1.0-3.0); HEMATOCRIT 35.7 % (37.0-47.0); HEMOGLOBIN 11.8 g/dL (12.0-16.0); MEAN CORPUSCULAR HEMOGLOBIN 28.6 pg (27.0-34.0); MEAN CORPUSCULAR HGB CONC 33.1 g/dL (33.0-35.0); MEAN CORPUSCULAR VOLUME 86.7 fL (80-100); MONOCYTES PERCENT AUTO 6.1 % (2-8); NEUTROPHILS PERCENT AUTO 80.5 % (42.2-75.2); PLATELET COUNT,PLT 265 10^3/uL (150-450); RED BLOOD CELL COUNT 4.12 10^6/uL (4.2-5.4); WHITE BLOOD CELL COUNT,WBC 8.5 10^3/uL (5.0-10.0)
[2023-11-16 14:31] LABS: ALBUMIN 2.8 g/dL (3.4-5.0); BILIRUBIN TOTAL 0.3 mg/dL (0.2-1.0); BUN/CREATININE RATIO 14.4 (No establ ref range); C-REACTIVE PROTEIN 4.44 ng/dL (<=0.50); CALCIUM 8.7 mg/dL (8.5-10.1); CREATININE 0.9 mg/dL (0.55-1.02); EST CRCL DRUG DOSING (CG) 80.9 mL/min; MAGNESIUM 1.7 mg/dL (1.8-2.4); PHOSPHORUS 4.8 mg/dL (2.6-4.7); PROTEIN TOTAL,TP 6.6 g/dL (6.4-8.2)
[2023-11-16 14:34] LABS: A/G RATIO 0.74
[2023-11-16 14:36] LABS: LACTIC ACID 0.8 mmol/L (0.4-2.0)
[2023-11-16 15:33] LABS: APPEARANCE,URINE SLIGHTLY CLOUDY (CLEAR); BILIRUBIN,URINE NEGATIVE (NEGATIVE); COLOR,URINE YELLOW (YELLOW); GLUCOSE,URINE NEGATIVE (NEGATIVE); KETONES,URINE NEGATIVE (NEGATIVE); LEUKOCYTE ESTERASE,URINE SMALL (NEGATIVE); NITRITE,URINE NEGATIVE (NEGATIVE); OCCULT BLOOD,URINE LARGE (NEGATIVE); PROTEIN,URINE 100 (NEGATIVE); UROBILINOGEN,URINE 0.2 mg/dL (0.2-1.0)
[2023-11-16 15:44] LABS: EPITHELIAL CELLS,URINE FEW /HPF (NOT SEEN); RBC,URINE >100 /HPF (0-5); WBC,URINE 30-40 /HPF (0-5/HPF)
[2023-11-16 15:45] LABS: BACTERIA,URINE FEW /HPF (0-FEW/HPF); MUCUS,URINE OCCASIONAL /LPF (NOT SEEN)
== END 2023-11-16 16:09 | disposition home or self-care (01) ==
LOC: DL.ED 13:40
DX: O87.1 Deep phlebothrombosis in the puerperium (principal); I82.441 Acute embolism and thrombosis of right tibial vein; Z86.16 Personal history of COVID-19
CPT/HCPCS: 36415; 80053; 81001; 83605; 83735; 84100; 85025; 86140; 87086; 87088; 87186; 93970; 99284; J3490

== ENCOUNTER 2024-12-25 05:56 | Day surgery (SDC) | payer BC, MEDICAID ==
[2024-12-25] MEDS ORDERED: Propofol 200 MG/20 ML SDV IV ONE (05:57)
[2024-12-25] MEDS ORDERED: Lactated Ringers 1,000 ML IV ONE (05:57)
[2024-12-25] MEDS ORDERED: Propofol 200 MG/20 ML SDV ONE ×2 (06:00→08:09)
[2024-12-25] MEDS: Lactated Ringers 1,000 ML IV SCH (06:15)
== END 2024-12-25 08:51 | disposition home or self-care (01) ==
LOC: DL.ENDO 05:56
PROVIDERS: ATTEND Internal Medicine Gastroenterology
DX: K62.5 Hemorrhage of anus and rectum (principal); R71.8 Other abnormality of red blood cells
CPT/HCPCS: 45378; J2704; J7120; 00811